=== PATIENT | female | born 1975 | race Caucasian/White ===

== ENCOUNTER 2016-05-03 16:26 | Emergency (ER) | payer OTHER ==
[~2016-05-03] VITALS: Ht 175.3 cm; Wt 99.8 kg
[~2016-05-03 16:26] MED LIST: ALBUTEROL0.09 MG/A1 INH; CYCLOBENZAPRINE5 M2 PO; HYDROCHLOROTHIA25 M1 PO; IBUPROFEN600 M1 PO; LISINOPRIL2.5 M1 PO; PERCOCET 5-3251 EACH PO; PROMETH/CODEIN120 ML PO
--- NOTE | 2016-05-03 17:46 | ED GENERAL ADULT ---
See Addendum History of Present Illness General Chief Complaint: General Adult Stated Complaint: 'I HAVE HIGH BLOOD PRESSURE" Source: patient Exam Limitations: no limitations Vital Signs & Intake/Output Vital Signs & Intake/Output Vital Signs Date Time Temp Pulse Resp B/P Pulse O2 O2 Flow FiO2 Ox Delivery Rate 05/03 1958 132/80 05/03 1924 97.0 105 20 168/102 05/03 190 168/102 05/03 1825 97.0 105 20 160/120 05/03 1739 98 05/03 1738 160/120 05/03 1641 97.0 105 20 162/112 99 Room Air Room Air Allergies Coded Allergies: No Known Allergies (07/29/15) Reconcile Medications Hydrochlorothiazide 25 MG TABLET 1 TAB PO DAILY htn Ibuprofen 600 MG TABLET 1 TAB PO PRN PAIN (Reported) with food Lisinopril 2.5 MG TABLET 1 TAB PO DAILY hypertension Triage Note: PT TO ED WITH C/O HIGH BLOOD PRESSURE, PT CURRENTLY ON LISINOPRIL AND HCTZ AT HOME, "I'VE BEEN HERE BEFORE AND THEY HAD TO GIVE ME AN INJECTION FOR MY BLOOD PRESSURE". BP 162/112 IN TRIAGE. Triage Nurses Notes Reviewed? yes Onset: Gradual Duration: day(s): (1) Timing: recent history Injury Environment: home Severity: moderate Severity Numbers: 7 No Modifying Factors: none : No Patient currently breastfeeds: No HPI: Patient is a 40-year-old female presenting to the emergency department complaining of elevated blood pressure. She takes lisinopril and hydrochlorothiazide daily, took her dose today. She was feeling headaches, nauseous so she decided that a [employer] and have her blood pressure checked. When she went to [employer] her blood pressure was approximately 190/120. This has happened to her in the past and she is required IV antihypertensive medications to control blood pressure. Patient reports that she's also been dealing with a lot of low back pain and has had steroid injections over the past week. Denies any chest pain palpitations or shortness of breath. Denies any vision changes. No urinary frequency or urgency or dysuria. Denies taking anything to help with headaches. Headaches are throbbing in nature over the temporal region. (YVETTE ROWELL,ADWOA) Past History Travel History Traveled to [place] past 21 day No Medical History Any Pertinent Medical History? see below for history Neurological: NONE EENT: NONE Cardiovascular: hypertension Respiratory: NONE Gastrointestinal: NONE Hepatic: NONE Renal: NONE Musculoskeletal: chronic back pain Psychiatric: NONE Endocrine: NONE Blood Disorders: NONE Cancer(s): NONE EMISSION SPECIALIST/Reproductive: NONE Surgical History Surgical History: Psychosocial History What is your primary language South African Tobacco Use: Never used ETOH Use: denies use Illicit Drug Use: denies illicit drug use Family History Hx Contributory? No (ADWOA LINTON) Review of Systems Review of Systems Constitutional: Reports: no symptoms. Comments Review of systems: See HPI, All other systems negative. Constitutional, no chills fever or weight loss HEENT: No visual changes no sore throat no congestion Cardiovascular: No chest pain ,palpitation , orthopnea or ankle swelling Skin, no jaundice no rashes Respiratory: No dyspnea cough sputum or hemoptysis GI: no vomiting : No dysuria No hematuria Muscle skeletal: no back pain, no neck pain, Neurologic: No numbness no confusion Psych: No stress anxiety or depression,. Heme/endocrine: No bruising no bleeding no polyuria or polydipsia Immunology: No splenectomy or history of AIDS (ADWOA LINTON) Physical Exam Physical Exam General Appearance: well developed/nourished, no apparent distress, alert, awake , comfortable Comments: Well-developed well-nourished person in no acute distress HEENT:extraocular motion intact, no nystagmus. Pupils equally round and reactive to light and accommodation. Nose is atraumatic. External auditory canal and Tympanic membranes clear. Pharynx normal. No swelling or edema. Funduscopic exam: Limited secondary to no dilation prior to exam, no obvious retinal detachment, no obvious venous nicking. Neck: Supple, no lymphadenopathy, normal range of motion without pain or tenderness Back: Nontender, no CVA tenderness. Full range of motion Cardiovascular: Regular rate and rhythms no murmurs rubs or gallops, normal JVP Respiratory: Chest nontender. No respiratory distress.breath sounds clear to auscultation bilaterally Extremity: No edema, no calf tenderness to palpation, normal and equal pulses. Neuro: Alert oriented x3, motor sensory normal, cranial nerves II through XII grossly intact. Cerebellar testing is unremarkable. Skin: No appreciable rash on exposed skin, skin is warm and dry. Psych: Mood and affect is normal, memory and judgment is normal. Core Measures ACS in differential dx? Yes CVA/TIA Diagnosis: No Severe Sepsis Present: No Septic Shock Present: No (YVETTE ROWELL,ADWOA) Progress Differential Diagnoses I considered the following diagnoses in my evaluation of the patient: Hypertensive urgency, CVA, intracranial hemorrhage, refractory hypertension, increased risk for CVA and MN. Endorgan damage. Acute kidney injury, Plan of Care: Orders Procedure Date/time Status Add-on Test (ER Only) 05/03 1815 Active HUMAN BETA HCG SCREEN 05/03 1814 Complete Telemetry/Brancher 05/03 1744 Active URINALYSIS 05/03 1744 Active TROPONIN LEVEL 05/03 1744 Complete COMPREHENSIVE METABOLIC PANEL 05/03 1744 Complete CBC WITHOUT DIFFERENTIAL 05/03 1744 Complete EKG 05/03 173 Active Laboratory Tests 05/03/161814: Anion Gap 10, Estimated GFR > 60, BUN/Creatinine Ratio 14.3, Glucose 90, Calcium 9.4, Total Bilirubin 0.5, AST 19, ALT 33, Alkaline Phosphatase 45, Troponin I < 0.01, Total Protein 7.6, Albumin 4.4, Globulin 3.2, Albumin/Globulin Ratio 1.4, Total Beta HCG NEGATIVE 05/03/161744: CBC w Diff NO MAN DIFF REQ, RBC 5.14, MCV 90.2, MCH 30.3, RDW 12.9, MPV 7.2 L, Gran % 66.2, Lymphocytes % 27.5, Monocytes % 5.4, Eosinophils % 0.3, Basophils % 0.6, Absolute Granulocytes 8.1 H, Absolute Lymphocytes 3.4, Absolute Monocytes 0.7 H, Absolute Eosinophils 0, Absolute Basophils 0.1, PUBS MCHC 33.6 1900 PT C/O SELBY, TORADOL 30MG IV, BENADRYL 25MG IV ORDERED D/W PT HER LAB RESULTS CT PENDING (FERNY ROWELL,ROBERTA) Diagnostic Imaging: Viewed by Me: Radiology Read, CT Scan. Discussed w/RAD: Radiology Read, CT Scan. Radiology Impression: ATIENT: KRISHNA DIALLO PRESENT AGE: 40 PATIENT ACCOUNT NO: [id number] : 77 LOCATION: [facility] ORDERING PHYSICIAN: ADWOA ROWELL SERVICE DATE: 05/03/16-1744 EXAM TYPE: RAD - XRY-PORTABLE CHEST XRAY EXAMINATION: XR PORTABLE CHEST CLINICAL INFORMATION: Cardiomegaly. COMPARISON: None TECHNIQUE: Portable AP portable view of the chest was obtained. 5:55 PM FINDINGS: No significant abnormality is noted involving the heart, lungs, mediastinum, bony thorax or soft tissues. Heart size is normal. Cardiac and mediastinal contours are normal. IMPRESSION: No acute abnormality of the chest. Heart size is normal. Initial ED EKG: SINUS RHYTHM, 98 BPM, PROBABLE LEFT ATRIAL ABNORMALITY, BORDERLINE LEFT AXIS DEVIATION AND BORDERLINE t ABNORMALITIES Prior EKG: unchanged Hand-Off Endorsed To: ROBERTA MARIA Endorsed Time: 1829 Pending: labs, other Comments: 05/03/2016 6:00:25 PM arrival patient in no acute distress, hypertensive urgency present. She is neurologically intact, no focal findings on exam. Patient medicated with IV labetalol 10 mg. Will follow blood pressure, CBC, CMP, troponin, CT head and chest x-ray and EKG ordered. 05/03/2016 6:30:53 PM patient will be signed out to SORIN Herr pending lab work and imaging finding. We will continue to trend blood pressure. (ADWOA LINTON) Departure Departure Disposition: HOME OR SELF CARE Condition: Stable Clinical Impression Primary Impression: Hypertensive urgency Referrals: VALENCIA SOLORZANO DO (PCP/Family) Departure Forms: Customer Survey General Discharge Information (ADWOA LINTON) Departure Time of Disposition: 2014 Additional Instructions: Follow-up with your primary care physician tomorrow. Continue taking hydrochlorothiazide 25 mg, increase your lisinopril to 5 mg once a day. You may need further medication adjustment if YOUR blood pressure dOES not remain controlled. Check her blood pressures at home as discussed Return for worsening symptoms or concerns. (ROBERTA MARIA) PA/MANAGED CARE LIAISON Co-Sign Statement Statement: ED Attending supervision documentation- [] I saw and evaluated the patient. I have also reviewed all the pertinent lab results and diagnostic results. I agree with the findings and the plan of care as documented in the PA's/MANAGED CARE LIAISON's documentation. [X] I have reviewed the ED Record and agree with the PA's/MANAGED CARE LIAISON's documentation. [] Additions or exceptions (if any) to the PAs/MANAGED CARE LIAISON's note and plan are summarized below: [] (JOANNA MYRICKJAQUELIN) Critical Care Note Critical Care Note Critical Care Time: 30-74 min (YVETTE ROWELL,ADWOA)
--- NOTE | 2016-05-03 18:15 | RADIOLOGY REPORT ---
EXAMINATION: XR PORTABLE CHEST CLINICAL INFORMATION: Cardiomegaly. COMPARISON: None TECHNIQUE: Portable AP portable view of the chest was obtained. 5:55 PM FINDINGS: No significant abnormality is noted involving the heart, lungs, mediastinum, bony thorax or soft tissues. Heart size is normal. Cardiac and mediastinal contours are normal. IMPRESSION: No acute abnormality of the chest. Heart size is normal.
[2016-05-03 18:23] LABS: ABSOLUTE BASOPHIL COUNT 0.1 /CUMM (0.0-0.2); ABSOLUTE EOSINOPHIL COUNT 0 /CUMM (0.0-0.7); ABSOLUTE GRANULOCYTE CT 8.1 /CUMM (1.4-6.5); ABSOLUTE LYMPH COUNT 3.4 /CUMM (1.2-3.4); ABSOLUTE MONOCYTE COUNT 0.7 /CUMM (0.10-0.60); BASOPHIL % 0.6 % (0.0-2.0); EOSINOPHIL % 0.3 % (0-5); GRANULOCYTE % 66.2 % (42.2-75.2); HEMATOCRIT 46.3 % (37-47); MEAN CORPUSCULAR HGB 30.3 PG (27.0-31.0); MEAN CORPUSCULAR HGB CONC 33.6 G/DL (33.0-37.0); MEAN CORPUSCULAR VOLUME 90.2 FL (81.0-99.0); MEAN PLATELET VOLUME 7.2 FL (7.4-10.4); PLATELET COUNT 249 /CUMM (130-400); RBC DISTRIBUTION WIDTH 12.9 % (11.5-14.5); RED BLOOD CELL CT 5.14 /CUMM (4.20-5.40); WHITE BLOOD CELL COUNT 12.3 /CUMM (4.8-10.8)
--- NOTE | 2016-05-03 19:03 | CT SCAN REPORT ---
EXAMINATION: CT HEAD WITHOUT CONTRAST CLINICAL INFORMATION: Headache. High blood pressure. COMPARISON: None. TECHNIQUE: Contiguous axial imaging was performed from the skull base to vertex without intravenous administration of contrast. DLP: 529.16 mGy-cm. FINDINGS: There is no evidence of acute intracranial hemorrhage or territorial infarction. No abnormal mass effect or midline shift is seen. Wheat to white matter differentiation is well preserved. No extra-axial fluid collections are identified. The ventricles are normal in size. There is no abnormal attenuation within the brain parenchyma. The osseous structures and soft tissues are normal. The mastoid air cells and visualized portions of the paranasal sinuses are well aerated. IMPRESSION: No acute intracranial pathology.
[2016-05-03 19:59] VITALS: BP 132/80
== END 2016-05-03 20:26 ==
LOC: ERH 16:26
PROVIDERS: Physician Assistant
DX: I16.0 Hypertensive urgency (principal)
CPT/HCPCS: 93005; 93010; 96374; 96375; 96376; 99291; J1200; J1885; J2405

== ENCOUNTER 2016-06-17 17:53 | Emergency (ER) | payer OTHER ==
[~2016-06-17] VITALS: Ht 175.3 cm; Wt 99.8 kg
[2016-06-17] MEDS ORDERED: PRINIVIL5 M1 PO (18:20)
[2016-06-17] MEDS ORDERED: MULTI-DAY VITA1 EACH PO (18:21)
[2016-06-17 18:58] LABS: ABSOLUTE BASOPHIL COUNT 0 /CUMM (0.0-0.2); ABSOLUTE EOSINOPHIL COUNT 0 /CUMM (0.0-0.7); ABSOLUTE GRANULOCYTE CT 2.4 /CUMM (1.4-6.5); ABSOLUTE LYMPH COUNT 1.7 /CUMM (1.2-3.4); ABSOLUTE MONOCYTE COUNT 0.4 /CUMM (0.10-0.60); BASOPHIL % 0.7 % (0.0-2.0); EOSINOPHIL % 0.3 % (0-5); GRANULOCYTE % 53.2 % (42.2-75.2); HEMATOCRIT 44.4 % (37-47); MEAN CORPUSCULAR HGB 30.3 PG (27.0-31.0); MEAN CORPUSCULAR HGB CONC 34.2 G/DL (33.0-37.0); MEAN CORPUSCULAR VOLUME 88.6 FL (81.0-99.0); MEAN PLATELET VOLUME 7.7 FL (7.4-10.4); PLATELET COUNT 171 /CUMM (130-400); RBC DISTRIBUTION WIDTH 13.4 % (11.5-14.5); RED BLOOD CELL CT 5.01 /CUMM (4.20-5.40); WHITE BLOOD CELL COUNT 4.4 /CUMM (4.8-10.8)
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
[2016-06-17 21:15] VITALS: BP 128/68
== END 2016-06-17 22:05 ==
LOC: ERH 17:53
PROVIDERS: Physician Assistant Medical
DX: R51 Headache (principal); R79.89 Other specified abnormal findings of blood chemistry
CPT/HCPCS: 86618; 81001; 93005; 93010; 96374; 96375; J1200; J1885; J2765

== ENCOUNTER 2016-09-06 20:57 | Emergency (ER) | payer OTHER ==
[~2016-09-06] VITALS: Ht 175.3 cm; Wt 99.8 kg
[~2016-09-06 20:57] MED LIST changes: +MULTI-DAY VITA1 EACH PO; +PRINIVIL5 M1 PO
--- NOTE | 2016-09-06 21:37 | ED GENERAL ADULT ---
History of Present Illness General Chief Complaint: General Adult Stated Complaint: HIGH BP/SELBY Source: patient Exam Limitations: no limitations Vital Signs & Intake/Output Vital Signs & Intake/Output Vital Signs Date Time Temp Pulse Resp B/P B/P Pulse O2 O2 Flow FiO2 Mean Ox Delivery Rate 09/06 2323 97.9 109 19 179/100 98 Room Air 09/06 2122 98.1 119 18 188/102 98 Room Air ED Intake and Output 09/07 0000 09/06 1200 Intake Total Output Total Balance Patient 220 lb Weight Weight Reported by Patient Measurement Method Allergies Coded Allergies: metoclopramide (From REGLAN) (RAPID PULSE 06/17/16) Reconcile Medications Amlodipine (Norvasc) 2.5 MG TABLET 1 TAB PO DAILY high blood pressure Hydrochlorothiazide 25 MG TABLET 1 TAB PO DAILY htn Lisinopril (Prinivil) 5 MG TABLET 1 TAB PO DAILY BP (Reported) Multivitamin (Multi-Day Vitamins) 1 EACH TABLET 1 TAB PO DAILY SUPPLEMENT ( Reported) Triage Note: TRIAGE: PATIENT TO ER FROM HOME REPORTING HX HTN, "TODAY FELT STRESSED AND KNEW SOMETHING WASN'T RIGHT, BP WAS HIGH AND HEART RACING/ CP." PATIENT BP:188/102 MANUALLY. HR:116-119 IN TRIAGE. PATIENT DENIES CURRENT HEADACHE, REPORTS "I THINK I JUST ALWAYS HAVE A HEADACHE NOW SO I DON'T EVEN FEEL IT." EKG IN PROGRESS. Triage Nurses Notes Reviewed? yes Onset: Gradual Duration: months, waxing and waning Timing: single episode today Injury Environment: home Severity: mild Modifying Factors: Improves With: rest. Associated Symptoms: mild diffuse headache x months : No Patient currently breastfeeds: No HPI: 41 yo woman with several months of elevated blood pressure. She has been on labetolol, followed by lisinopril/hctz, which she stopped 2-3 months ago, "because it wasnt' working." She notes dizziness, mild headache, occasional chest pressure for the past several months. Past History Travel History Traveled to [place] past 21 day No Medical History Any Pertinent Medical History? 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 No Review of Systems Review of Systems Constitutional: Reports: no symptoms. EENTM: Reports: no symptoms. Respiratory: Reports: no symptoms. Cardiovascular: Reports: no symptoms. GI: Reports: no symptoms. Genitourinary: Reports: no symptoms. Musculoskeletal: Reports: no symptoms. Skin: Reports: no symptoms. Neurological/Psychological: Reports: no symptoms. Hematologic/Endocrine: Reports: no symptoms. Immunologic/Allergic: Reports: no symptoms. All Other Systems: Reviewed and Negative Physical Exam Physical Exam General Appearance: well developed/nourished, mild distress Head: atraumatic, normal appearance Eyes: Bilateral: normal appearance. Ears, Nose, Throat: normal pharynx, normal ENT inspection Neck: normal inspection, supple, full range of motion Respiratory: normal breath sounds, chest non-tender, no respiratory distress, quiet respiration, lungs clear Cardiovascular: regular rate/rhythm Gastrointestinal: normal bowel sounds, soft, non-tender, no organomegaly Back: normal inspection, normal range of motion Extremities: normal inspection, normal capillary refill, normal range of motion, no edema Neurologic/Psych: no motor/sensory deficits, awake, alert, oriented x 3 Skin: intact, normal color, warm/dry Core Measures ACS in differential dx? No CVA/TIA Diagnosis: No Severe Sepsis Present: No Septic Shock Present: No Progress Differential Diagnoses I considered the following diagnoses in my evaluation of the patient: hyperthyroidism vs essential hypertension vs other. Plan of Care: Orders Procedure Date/time Status THYROID STIMULATING HORMONE 09/07 2147 Complete FREE T4 09/07 2147 Complete TROPONIN LEVEL 09/06 2118 Complete HUMAN BETA HCG SCREEN 09/06 2118 Complete COMPREHENSIVE METABOLIC PANEL 09/06 2118 Complete CBC WITHOUT DIFFERENTIAL 09/06 2118 Complete EKG 09/06 2118 Active Laboratory Tests 09/06/162147: Anion Gap 13, Estimated GFR > 60, BUN/Creatinine Ratio 17.1, Glucose 123 H, Calcium 9.4, Total Bilirubin 0.5, AST 26, ALT 38, Alkaline Phosphatase 54, Troponin I < 0.01, Total Protein 7.7, Albumin 4.6, Globulin 3.1, Albumin/ Globulin Ratio 1.5, TSH 1.380, Free T4 1.09, Total Beta HCG NEGATIVE, CBC w Diff NO MAN DIFF REQ, RBC 5.21, MCV 88.6, MCH 29.8, RDW 13.5, MPV 7.8, Gran % 58.1, Lymphocytes % 36.7, Monocytes % 3.9, Eosinophils % 0.5, Basophils % 0.8, Absolute Granulocytes 5.6, Absolute Lymphocytes 3.5 H, Absolute Monocytes 0.4, Absolute Eosinophils 0, Absolute Basophils 0.1, PUBS MCHC 33.6 09/06/16 2136: TSH Cancelled, Free T4 Cancelled Diagnostic Imaging: Viewed by Me: Ultrasound. Discussed w/RAD: Ultrasound. Radiology Impression: thyroid u/s... no thyromegaly... otherwise benign... full report below. Initial ED EKG: normal axis, normal intervals, normal p-waves, normal QRS complex, normal sinus rhythm Comments: PATIENT: KRISHNA DIALLO PRESENT AGE: 41 PATIENT ACCOUNT NO: [id number] : 77 LOCATION: [facility] ORDERING PHYSICIAN: MARIALUISA SALINAS MD SERVICE DATE: 09/01/16 EXAM TYPE: US - US-SOFT TISSUES OF HEAD & NECK EXAMINATION: US THYROID CLINICAL INFORMATION: Nontoxic goiter, unspecified. COMPARISON: None TECHNIQUE: Linear transducer michelle-scale and color Doppler examination with attention to the region of the thyroid. FINDINGS: SIZE: Measurements of the thyroid lobes and nodules are given in sagittal, anteroposterior and transverse dimensions respectively. Right Thyroid Lobe: 4.5 x 2.1 x 1.7 cm, volume 8.4 mL. Parenchyma: The gland echotexture is homogeneous. Thyroid vascularity is normal. Left Thyroid Lobe: 4.9 x 1.2 x 1.8 cm, volume 5.5 mL. Parenchyma: The gland echotexture is homogeneous. Thyroid vascularity is normal. Isthmus: 0.6 cm in maximum AP dimension. RIGHT THYROID LOBE: No nodules. ISTHMUS: No nodules. LEFT THYROID LOBE: No nodules. NODES: Nonspecific 1.1 cm lymph node in the right neck. IMPRESSION: 1. No thyromegaly. 2. No suspicious thyroid nodules. 3. Nonspecific 1.1 cm right cervical lymph node. DICTATED BY: JARED KHAN MD DATE/TIME DICTATED:09/01/161337 GEOTECHNICAL FIELD TECHNICIAN:FLAKO DATE/TIME TRANSCRIBED:09/01/161337 CONFIDENTIAL, DO NOT COPY WITHOUT APPROPRIATE AUTHORIZATION. <Electronically signed in Other Vendor System> SIGNED BY: JARED KHAN MD 09/02/16 8052 Departure Departure Disposition: HOME OR SELF CARE Condition: Stable Clinical Impression Primary Impression: Hypertension Secondary Impressions: Headache Referrals: VALENCIA SOLORZANO DO (PCP/Family) Departure Forms: Customer Survey General Discharge Information Prescriptions: Current Visit Scripts Amlodipine (Norvasc) 1 TAB PO DAILY #30 TAB Comments At discharge, patient feeling well. I discussed with her at great length medications that she has taken in the past. She has not tolerated beta blockers , lisinopril, hydrochlorothiazide. It appears she has not taken her Norvasc. After much discussion, I started her on low dose of Norvasc. I advise close follow-up with her PMD or return to emergency department if her symptoms recur. Critical Care Note Critical Care Note Critical Care Time: non-applicable
[2016-09-06 21:57] LABS: ABSOLUTE BASOPHIL COUNT 0.1 /CUMM (0.0-0.2); ABSOLUTE EOSINOPHIL COUNT 0 /CUMM (0.0-0.7); ABSOLUTE GRANULOCYTE CT 5.6 /CUMM (1.4-6.5); ABSOLUTE LYMPH COUNT 3.5 /CUMM (1.2-3.4); ABSOLUTE MONOCYTE COUNT 0.4 /CUMM (0.10-0.60); BASOPHIL % 0.8 % (0.0-2.0); EOSINOPHIL % 0.5 % (0-5); GRANULOCYTE % 58.1 % (42.2-75.2); HEMATOCRIT 46.2 % (37-47); MEAN CORPUSCULAR HGB 29.8 PG (27.0-31.0); MEAN CORPUSCULAR HGB CONC 33.6 G/DL (33.0-37.0); MEAN CORPUSCULAR VOLUME 88.6 FL (81.0-99.0); MEAN PLATELET VOLUME 7.8 FL (7.4-10.4); PLATELET COUNT 291 /CUMM (130-400); RBC DISTRIBUTION WIDTH 13.5 % (11.5-14.5); RED BLOOD CELL CT 5.21 /CUMM (4.20-5.40); WHITE BLOOD CELL COUNT 9.6 /CUMM (4.8-10.8)
[2016-09-06] MEDS ORDERED: NORVASC2.5 M1 PO (23:15)
[2016-09-06 23:23] VITALS: BP 179/100
== END 2016-09-06 23:23 ==
LOC: ERH 20:57
PROVIDERS: Pediatrics
DX: I10 Essential (primary) hypertension (principal); R51 Headache; R07.89 Other chest pain
CPT/HCPCS: 93005; 93010

== ENCOUNTER 2016-09-08 22:47 | Emergency (ER) | payer OTHER ==
[~2016-09-08] VITALS: Ht 175.3 cm; Wt 99.8 kg
[~2016-09-08 22:47] MED LIST changes: +NORVASC2.5 M1 PO
[2016-09-09 00:03] VITALS: BP 186/102
--- NOTE | 2016-09-09 00:20 | ED GENERAL ADULT ---
History of Present Illness General Chief Complaint: General Adult Stated Complaint: PT HAS HIGH BLOOD PRESSURE Source: patient Exam Limitations: no limitations Vital Signs & Intake/Output Vital Signs & Intake/Output Vital Signs Date Time Temp Pulse Resp B/P B/P Pulse O2 O2 Flow FiO2 Mean Ox Delivery Rate 09/09 0003 97.4 93 18 186/102 98 Room Air Allergies Coded Allergies: metoclopramide (From REGLAN) (RAPID PULSE 06/17/16) Reconcile Medications Amlodipine (Norvasc) 2.5 MG TABLET 1 TAB PO DAILY high blood pressure Cyclobenzaprine HCl 10 MG TABLET 1 TAB PO TID PRN muscle spasm Hydrochlorothiazide 25 MG TABLET 1 TAB PO DAILY htn Lisinopril (Prinivil) 5 MG TABLET 1 TAB PO DAILY BP (Reported) Multivitamin (Multi-Day Vitamins) 1 EACH TABLET 1 TAB PO DAILY SUPPLEMENT ( Reported) Triage Note: PT REPORTS HERE TO SEE DR AMOS BOYKIN 2 DAYS AGO WITH HTN, TODAY TOOK 2 DOSES OF MED TODAY D/T SELBY ALSO BACK PAIN LOW BACK Triage Nurses Notes Reviewed? yes Onset: Gradual Duration: week(s):, waxing and waning Timing: recent history Injury Environment: home Severity: mild Modifying Factors: Improves With: rest. Associated Symptoms: headache, neck ache : No Patient currently breastfeeds: No HPI: 41-year-old woman history of hypertension and chronic headaches presents with headache. She states that she has had these headaches off and on for the past several weeks. She also has high blood pressure. She recently started Norvasc 2.5 mg tablet. She was prescribed this by me. She comes this evening, "for follow-up. She notes that she is tolerating the Norvasc. She increased the dose to 2 tablets a day. She notes that her headache has returned which feels like muscle stiffness in her upper neck. She has no photophobia, nausea, change in vision. She is otherwise well and has no other concerns. " Past History Travel History Traveled to [place] past 21 day No Medical History Any Pertinent Medical History? 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 No Review of Systems Review of Systems Constitutional: Reports: no symptoms. EENTM: Reports: no symptoms. Respiratory: Reports: no symptoms. Cardiovascular: Reports: no symptoms. GI: Reports: no symptoms. Genitourinary: Reports: no symptoms. Musculoskeletal: Reports: no symptoms. Skin: Reports: no symptoms. Neurological/Psychological: Reports: no symptoms. Hematologic/Endocrine: Reports: no symptoms. Immunologic/Allergic: Reports: no symptoms. All Other Systems: Reviewed and Negative Physical Exam Physical Exam General Appearance: well developed/nourished, no apparent distress Head: atraumatic, normal appearance, tenderness, diffuse para scalp muscle tenderness to palpation Eyes: Bilateral: normal appearance, PERRL, EOMI. Ears, Nose, Throat: normal pharynx, normal ENT inspection Neck: normal inspection, supple, full range of motion, paracervical muscle spasm w/ mild tenderness to palpation. Respiratory: normal breath sounds, chest non-tender, no respiratory distress, quiet respiration, lungs clear Cardiovascular: regular rate/rhythm, edema Gastrointestinal: normal bowel sounds, soft, non-tender, no organomegaly Back: normal inspection, normal range of motion Extremities: normal inspection, normal capillary refill, normal range of motion, no edema Neurologic/Psych: no motor/sensory deficits, awake, alert, oriented x 3 Reflexes: 1+: bicep (R), bicep (L), knee (R), knee (L). Skin: intact, normal color, warm/dry Core Measures ACS in differential dx? No CVA/TIA Diagnosis: No Severe Sepsis Present: No Septic Shock Present: No Progress Differential Diagnoses I considered the following diagnoses in my evaluation of the patient: tension vs migraine headache vs hypetension Plan of Care: Current Medications Sig/Ivette Start time Last Medication Dose Stop Time Status Admin Acetaminophen 975 MG ONCE ONE 09/09 44 UNVr (Tylenol) 09/09 45 Cyclobenzaprine HCl 10 MG ONCE ONE 09/09 44 UNVr (Flexeril 10MG Tab) 09/09 45 Initial ED EKG: none Departure Departure Disposition: HOME OR SELF CARE Condition: Stable Clinical Impression Primary Impression: Hypertension Secondary Impressions: Headache Referrals: VALENCIA SOLORZANO DO (PCP/Family) Departure Forms: Customer Survey General Discharge Information Prescriptions: Current Visit Scripts Cyclobenzaprine HCl 1 TAB PO TID PRN muscle spasm #30 TAB Ref 1 Comments Well-appearing in ED with cervical muscle tenderness and spasm. I discussed at great length with her. I do not believe this is hypertensive encephalopathy. She will continue the Norvasc at 2 tablets. I prescribed Flexeril and advocated Tylenol [id number], staying away from NSAIDs due to their effect on her blood pressure. I advised close follow-up with her PMD. Critical Care Note Critical Care Note Critical Care Time: non-applicable
[2016-09-09] MEDS ORDERED: CYCLOBENZAPRINE10 M1 PO (00:36)
== END 2016-09-09 00:42 ==
LOC: ERH 22:47
DX: I10 Essential (primary) hypertension (principal); R51 Headache